=== PATIENT | male | born 1970 | race Caucasian/White ===

== ENCOUNTER 2020-06-14 13:09 | Inpatient (IN) | payer BC ==
[~2020-06-14] VITALS: Ht 172.7 cm; Wt 109.3 kg
[2020-06-14 13:12] VITALS: Ht 172.7 cm; Wt 109.3 kg
[2020-06-14 14:22] LABS: BASOPHIL % 0.7 % (0.2-1.5); PLATELET COUNT 172 x10^3mcL (152-348); RED CELL DISTRIBUTION WIDTH 12.7 % (12.1-16.2)
[2020-06-14 14:34] LABS: CALCIUM 8.5 mg/dL (8.5-10.1); CARBON DIOXIDE 28.2 mmol/L (21-32); CHLORIDE SERUM 101 mmol/L (98-107); CREATININE SERUM 1.1 mg/dL (0.7-1.3); GFR1 > 60 mL/min; GLUCOSE SERUM 249 mg/dL (74-106); POTASSIUM SERUM 3.7 mmol/L (3.5-5.1); SODIUM SERUM 136 mmol/L (136-145)
[2020-06-14 14:38] LABS: ALKALINE PHOSPHATASE 87 U/L (46-116); ALT/SGPT 40 U/L (16-63); AST/SGOT 25 U/L (15-37); BILIRUBIN TOTAL 0.6 mg/dL (0.20-1.00); TOTAL PROTEIN, SERUM 6.9 g/dL (6.4-8.2)
[2020-06-14 14:39] LABS: ALBUMIN 3.1 g/dL (3.4-5.0)
[2020-06-14 18:06] LABS: C REACTIVE PROTEIN 8.3 mg/dL (<=0.9)
[2020-06-14] MEDS ORDERED: FORTAMET500 M1 (21:13)
[2020-06-14] MEDS ORDERED: ADDERALL20 MG PO (21:13)
[2020-06-14 21:36] VITALS: BP 121/81
[2020-06-15 04:35] VITALS: BP 107/59
[2020-06-15 07:28] LABS: BASOPHIL % 0.2 % (0.2-1.5); PLATELET COUNT 186 x10^3mcL (152-348); RED CELL DISTRIBUTION WIDTH 12.8 % (12.1-16.2)
[2020-06-15 08:05] LABS: ALKALINE PHOSPHATASE 81 U/L (46-116); ALT/SGPT 38 U/L (16-63); AST/SGOT 23 U/L (15-37); BILIRUBIN TOTAL 0.5 mg/dL (0.20-1.00); CALCIUM 8.6 mg/dL (8.5-10.1); CARBON DIOXIDE 24.8 mmol/L (21-32); CHLORIDE SERUM 100 mmol/L (98-107); CREATININE SERUM 0.9 mg/dL (0.7-1.3); GFR1 > 60 mL/min; GLUCOSE SERUM 238 mg/dL (74-106); POTASSIUM SERUM 3.7 mmol/L (3.5-5.1); SODIUM SERUM 136 mmol/L (136-145); TOTAL PROTEIN, SERUM 6.6 g/dL (6.4-8.2)
[2020-06-15 08:07] LABS: ALBUMIN 2.9 g/dL (3.4-5.0)
[2020-06-15 21:36] VITALS: BP 121/77
[2020-06-16 05:52] VITALS: BP 111/69
[2020-06-16 07:28] LABS: BASOPHIL % 0.3 % (0.2-1.5); PLATELET COUNT 223 x10^3mcL (152-348); RED CELL DISTRIBUTION WIDTH 12.8 % (12.1-16.2)
[2020-06-16 08:00] LABS: ALBUMIN 2.9 g/dL (3.4-5.0); ALKALINE PHOSPHATASE 82 U/L (46-116); ALT/SGPT 34 U/L (16-63); AST/SGOT 28 U/L (15-37); BILIRUBIN DIRECT 0.06 mg/dL (0.0-0.2); BILIRUBIN TOTAL 0.5 mg/dL (0.20-1.00); CALCIUM 8.8 mg/dL (8.5-10.1); CARBON DIOXIDE 29.7 mmol/L (21-32); CHLORIDE SERUM 100 mmol/L (98-107); CREATININE SERUM 0.9 mg/dL (0.7-1.3); GFR1 > 60 mL/min; GLUCOSE SERUM 176 mg/dL (74-106); MAGNESIUM 2.4 mg/dL (1.8-2.4); POTASSIUM SERUM 3.9 mmol/L (3.5-5.1); SODIUM SERUM 139 mmol/L (136-145); TOTAL PROTEIN, SERUM 6.9 g/dL (6.4-8.2)
[2020-06-16 08:36] VITALS: BP 95/54
[2020-06-16 12:16] VITALS: BP 119/71
[2020-06-16 16:39] VITALS: BP 115/70
[2020-06-16 20:16] VITALS: BP 121/83
[2020-06-17 04:52] VITALS: BP 120/80
[2020-06-17 07:44] VITALS: BP 98/51
[2020-06-17 08:04] LABS: BASOPHIL % 0.2 % (0.2-1.5); PLATELET COUNT 252 x10^3mcL (152-348); RED CELL DISTRIBUTION WIDTH 12.8 % (12.1-16.2)
[2020-06-17 08:35] LABS: ALKALINE PHOSPHATASE 78 U/L (46-116); ALT/SGPT 32 U/L (16-63); AST/SGOT 19 U/L (15-37); BILIRUBIN TOTAL 0.39 mg/dL (0.20-1.00); C REACTIVE PROTEIN 4.5 mg/dL (<=0.9); CALCIUM 8.4 mg/dL (8.5-10.1); CARBON DIOXIDE 31.6 mmol/L (21-32); CHLORIDE SERUM 101 mmol/L (98-107); GFR1 > 60 mL/min; GLUCOSE SERUM 189 mg/dL (74-106); MAGNESIUM 2.6 mg/dL (1.8-2.4); PHOSPHOROUS 3.2 mg/dL (2.5-4.9); POTASSIUM SERUM 3.9 mmol/L (3.5-5.1); SODIUM SERUM 138 mmol/L (136-145); TOTAL PROTEIN, SERUM 6.5 g/dL (6.4-8.2)
[2020-06-17 09:13] LABS: ALBUMIN 2.7 g/dL (3.4-5.0)
[2020-06-17 13:12] VITALS: BP 103/59
[2020-06-17 16:26] VITALS: BP 110/62
[2020-06-17 21:05] VITALS: BP 129/78
[2020-06-18] VITALS (7 sets, daily range): BP systolic 99–129; BP diastolic 58–75
[2020-06-18 07:44] LABS: ALKALINE PHOSPHATASE 80 U/L (46-116); ALT/SGPT 28 U/L (16-63); AST/SGOT 15 U/L (15-37); BASOPHIL % 0.2 % (0.2-1.5); BILIRUBIN TOTAL 0.46 mg/dL (0.20-1.00); CALCIUM 8.7 mg/dL (8.5-10.1); CARBON DIOXIDE 32.3 mmol/L (21-32); CHLORIDE SERUM 103 mmol/L (98-107); GFR1 > 60 mL/min; GLUCOSE SERUM 190 mg/dL (74-106); PLATELET COUNT 271 x10^3mcL (152-348); POTASSIUM SERUM 4.5 mmol/L (3.5-5.1); RED CELL DISTRIBUTION WIDTH 12.8 % (12.1-16.2); SODIUM SERUM 138 mmol/L (136-145); TOTAL PROTEIN, SERUM 6.4 g/dL (6.4-8.2)
[2020-06-18 08:25] LABS: ALBUMIN 2.7 g/dL (3.4-5.0)
[2020-06-19 05:30] VITALS: BP 105/71
[2020-06-19 07:34] LABS: BASOPHIL % 0.3 % (0.2-1.5); PLATELET COUNT 299 x10^3mcL (152-348); RED CELL DISTRIBUTION WIDTH 12.8 % (12.1-16.2)
[2020-06-19 07:53] LABS: CHLORIDE SERUM 104 mmol/L (98-107); GFR1 > 60 mL/min; GLUCOSE SERUM 150 mg/dL (74-106); SODIUM SERUM 142 mmol/L (136-145)
[2020-06-19 08:19] LABS: BILIRUBIN DIRECT 0.1 mg/dL (0.0-0.2); BILIRUBIN TOTAL 0.45 mg/dL (0.20-1.00); TOTAL PROTEIN, SERUM 6.4 g/dL (6.4-8.2)
[2020-06-19 08:26] VITALS: BP 93/62
[2020-06-19 08:29] LABS: ALBUMIN 2.6 g/dL (3.4-5.0)
[2020-06-19 12:36] VITALS: BP 115/61
[2020-06-19 17:17] VITALS: BP 107/70
[2020-06-19 21:13] VITALS: BP 130/67
[2020-06-20 05:19] VITALS: BP 103/67
[2020-06-20 07:55] LABS: BASOPHIL % 0.1 % (0.2-1.5); PLATELET COUNT 311 x10^3mcL (152-348); RED CELL DISTRIBUTION WIDTH 12.7 % (12.1-16.2)
[2020-06-20 08:16] LABS: CALCIUM 8.5 mg/dL (8.5-10.1); CARBON DIOXIDE 30.3 mmol/L (21-32); CHLORIDE SERUM 100 mmol/L (98-107); CREATININE SERUM 1.1 mg/dL (0.7-1.3); GFR1 > 60 mL/min; GLUCOSE SERUM 282 mg/dL (74-106); POTASSIUM SERUM 4.3 mmol/L (3.5-5.1); SODIUM SERUM 138 mmol/L (136-145)
[2020-06-20 08:34] VITALS: BP 97/55
[2020-06-20 13:18] VITALS: BP 122/79
[2020-06-20 17:32] VITALS: BP 140/89
[2020-06-20 21:05] VITALS: BP 126/70
[2020-06-21 05:31] VITALS: BP 134/76
[2020-06-21 08:25] VITALS: BP 90/53
[2020-06-21 08:49] LABS: BASOPHIL % 0.2 % (0.2-1.5); PLATELET COUNT 317 x10^3mcL (152-348); RED CELL DISTRIBUTION WIDTH 12.8 % (12.1-16.2)
[2020-06-21 09:04] LABS: CALCIUM 8.9 mg/dL (8.5-10.1); CARBON DIOXIDE 30.6 mmol/L (21-32); CHLORIDE SERUM 102 mmol/L (98-107); GFR1 > 60 mL/min; GLUCOSE SERUM 164 mg/dL (74-106); POTASSIUM SERUM 4.2 mmol/L (3.5-5.1); SODIUM SERUM 139 mmol/L (136-145)
[2020-06-21 13:48] VITALS: BP 90/57
[2020-06-21 18:31] VITALS: BP 132/63
[2020-06-21 20:49] VITALS: BP 115/63
[2020-06-22 06:05] VITALS: BP 85/48
[2020-06-22 09:33] LABS: BASOPHIL % 0.1 % (0.2-1.5); PLATELET COUNT 303 x10^3mcL (152-348); RED CELL DISTRIBUTION WIDTH 12.9 % (12.1-16.2)
[2020-06-22 09:45] LABS: CALCIUM 8.7 mg/dL (8.5-10.1); CARBON DIOXIDE 29.9 mmol/L (21-32); CHLORIDE SERUM 103 mmol/L (98-107); GFR1 > 60 mL/min; GLUCOSE SERUM 203 mg/dL (74-106); POTASSIUM SERUM 4.2 mmol/L (3.5-5.1); SODIUM SERUM 140 mmol/L (136-145)
[2020-06-22 09:59] VITALS: BP 105/70
[2020-06-22 12:25] VITALS: BP 111/62
[2020-06-22 21:44] VITALS: BP 128/70
[2020-06-23 05:30] VITALS: BP 91/50
[2020-06-23 08:18] VITALS: BP 115/70
[2020-06-23] MEDS ORDERED: VENTOLIN H0.09 MG/A1 INH (10:04)
[2020-06-23] MEDS ORDERED: DECADRON6 MG PO (10:05)
[2020-06-23] MEDS ORDERED: GLUCOPHAGE500 MG PO (10:15)
[2020-06-23 11:56] VITALS: BP 142/67
[2020-06-23 17:04] VITALS: BP 118/89
[2020-06-23 21:05] VITALS: BP 110/78
[2020-06-24 05:17] VITALS: BP 107/59
[2020-06-24 08:44] VITALS: BP 103/63
[2020-06-24 12:05] VITALS: BP 115/63
[2020-06-24 16:22] VITALS: BP 106/66
[2020-06-24 20:49] VITALS: BP 116/73
[2020-06-25 05:48] VITALS: BP 112/70
[2020-06-25 09:26] VITALS: BP 101/46
[2020-06-25 11:52] VITALS: BP 101/46; BP 115/61
[2020-06-25 11:59] VITALS: BP 115/61
[2020-06-25 17:04] VITALS: BP 118/78
== END 2020-06-25 18:00 | disposition home or self-care (01) | DRG 177 ==
LOC: ED 13:09 → MU 16:28 → DU 16:28 → MU 21:25 → DU 06-17 23:27
PROVIDERS: Emergency Medicine; Family Medicine; ADMIT Internal Medicine; ATTEND Internal Medicine
PROC: XW13325 Transfusion of Convalescent Plasma (Nonautologous) into Peripheral Vein, Percutaneous Approach, New Technology Group 5 (ICD-10-PCS; principal; 2020-06-16)
PROC: XW033E5 Introduction of Remdesivir Anti-infective into Peripheral Vein, Percutaneous Approach, New Technology Group 5 (ICD-10-PCS; 2020-06-16)
DX: U07.1 COVID-19 (principal); J96.01 Acute respiratory failure with hypoxia; J12.82 Pneumonia due to coronavirus disease 2019; D68.59 Other primary thrombophilia; I10 Essential (primary) hypertension; Z83.3 Family history of diabetes mellitus; Z82.49 Family history of ischemic heart disease and other diseases of the circulatory system; E11.65 Type 2 diabetes mellitus with hyperglycemia; E66.9 Obesity, unspecified; Z71.3 Dietary counseling and surveillance; Z68.34 Body mass index [BMI] 34.0-34.9, adult
CPT/HCPCS: 82962; 85378; 87804; 94150; G0378; J0456; J0696; J1100; J1644; J1815; J2405; J3535; J7040; J7050; Q0163; U0003